=== PATIENT | female | born 1965 | race Caucasian/White ===

== ENCOUNTER 2016-09-07 11:00 | Outpatient (CLI) | payer OTHER, MEDICAID ==
[2016-09-07] MEDS ORDERED: ACETAMINOPHEN 325 MG TAB PO PRN (11:21)
[2016-09-07] MEDS ORDERED: diphenhydrAMINE 25 MG CAP PO ONE (11:30)
[2016-09-07 16:36] VITALS: BP 106/66; PULSE 72; RESP 17; TEMP 97.9; O2SAT 95
== END 2016-09-07 16:37 | disposition home or self-care (01) ==
LOC: F1NOP 11:00 → EDSTATUS 11:02 → F1NOP 16:37
PROVIDERS: ATTEND Internal Medicine Gastroenterology
DX: Z51.11 Encounter for antineoplastic chemotherapy (principal); K50.00 Crohn's disease of small intestine without complications
CPT/HCPCS: 96413; 96415; J1745

== ENCOUNTER 2016-10-30 09:27 | Outpatient (CLI) | payer OTHER, MEDICAID | END 2016-10-30 12:47 | disposition home or self-care (01) | LOC: F1NOP 09:27 | PROVIDERS: ATTEND Internal Medicine Gastroenterology | PROC: 3E033GC Introduction of Other Therapeutic Substance into Peripheral Vein, Percutaneous Approach (ICD-10-PCS; principal; 2016-10-30) | DX: K50.90 Crohn's disease, unspecified, without complications (principal) | CPT/HCPCS: 96413; 96415; J1745 ==

== ENCOUNTER 2016-10-30 09:27 | Outpatient (CLI) | payer OTHER, MEDICAID ==
[2016-09-16 12:28] LABS: % IMMATURE GRANULYOCYTES 0.3 % (0.0-1.1); ABSOLUTE IMMATURE GRANULOCYTES 0.02 10^3/uL (0.00-0.10); ADD DIFF? NO; ADD MORPH? NO; ADD SCAN? NO; ATYPICAL LYMPHOCYTE FLAG 40 (0-99); FRAGMENT RBC FLAG 20 (0-99); LEFT SHIFT FLG 0 (0-99); LIPEMIA HEMOLYSIS FLAG 80 (0-99); MEAN CELL HEMOGLOBIN 34.7 pg (27.9-34.1); MEAN CELL HEMOGLOBIN CONCENTR. 33.3 g/dL (32.4-36.7); PLATELET CLUMPS FLAG 10 (0-99); PLATELET COUNT 308 10^3/uL (150-400); RED BLOOD CELL COUNT 4.04 10^6/uL (4.18-5.33); RED CELL DISTRIBUTION WIDTH 13.7 % (11.5-15.2)
[2016-09-16 14:00] LABS: ALANINE AMINOTRANSFERASE 22 IU/L (9-52); ALBUMIN 3.5 g/dL (3.5-5.0); ALKALINE PHOSPHATASE 71 IU/L (38-126); ASPARTATE AMINOTRANSFERASE 32 IU/L (14-46); BILIRUBIN,TOTAL 1.1 mg/dL (0.1-1.4); BILIRUBIN-CONJUGATED 0.3 mg/dL (0.0-0.5); BILIRUBIN-UNCONJUGATED 0.8 mg/dL (0.0-1.1); TOTAL PROTEIN 7.3 g/dL (6.3-8.2)
[2016-09-16 15:41] LABS: COLOR AMBER; LEUKOCYTE ESTERASE,URINE NEGATIVE (NEGATIVE); NITRITE,URINE NEGATIVE (NEGATIVE)
[2016-09-18 13:59] LABS: FOLATE SERUM 10.2 ng/mL (2.80 - >20.00)
[2016-10-30] MEDS ORDERED: ACETAMINOPHEN 325 MG TAB PO PRN (09:50)
[2016-10-30] MEDS ORDERED: diphenhydrAMINE 25 MG CAP PO ONE (10:00)
[2016-10-30 10:27] VITALS: TEMP 97.9
[2016-10-30 12:39] VITALS: BP 118/78; PULSE 79; RESP 16; O2SAT 96
== END 2016-10-30 12:47 | disposition home or self-care (01) ==
LOC: F1NOP 09:27
PROVIDERS: ATTEND Internal Medicine Gastroenterology
DX: Z51.11 Encounter for antineoplastic chemotherapy (principal); K50.90 Crohn's disease, unspecified, without complications
CPT/HCPCS: 96413; 96415; J1745; 82607-90

== ENCOUNTER 2016-12-12 10:17 | Outpatient (CLI) | payer OTHER, MEDICAID ==
[2016-12-12] MEDS ORDERED: ACETAMINOPHEN 325 MG TAB PO PRN (10:28)
[2016-12-12] MEDS ORDERED: diphenhydrAMINE 25 MG CAP PO ONE (10:30)
[2016-12-12 10:34] VITALS: RESP 16
[2016-12-12 14:22] VITALS: BP 122/64; PULSE 66; TEMP 98.6; O2SAT 95
== END 2016-12-12 15:20 | disposition home or self-care (01) ==
LOC: F1NOP 10:17
PROVIDERS: ATTEND Internal Medicine Gastroenterology
DX: K50.90 Crohn's disease, unspecified, without complications (principal)
CPT/HCPCS: 96365; J1745

== ENCOUNTER → 2017-01-22 | Outpatient (CLI) | payer OTHER, MEDICAID ==
[~2017-01-22] MED LIST: INFLIXIMAB IV ONE; NS IV ONE; diphenhydrAMINE 50 MG CAP PO SCH
[2017-01-22 12:31] VITALS: RESP 16
[2017-01-22 13:21] VITALS: PULSE 76
[2017-01-22 20:31] VITALS: BP 113/68; TEMP 98.3; O2SAT 93
== END ==
LOC: F1NOP 09:58
PROVIDERS: ATTEND Internal Medicine Gastroenterology
PROC: 3E033GC Introduction of Other Therapeutic Substance into Peripheral Vein, Percutaneous Approach (ICD-10-PCS; principal; 2017-01-22)
DX: K50.90 Crohn's disease, unspecified, without complications (principal)
CPT/HCPCS: 96413; 96415; J1745

== ENCOUNTER → 2018-07-05 | Outpatient (CLI) | payer OTHER, MEDICAID | LOC: BMCIMAGING 11:12 | PROVIDERS: ATTEND Internal Medicine Rheumatology | DX: M24.811 Other specific joint derangements of right shoulder, not elsewhere classified (principal) | CPT/HCPCS: 86225-90 ==

== ENCOUNTER 2018-09-07 10:30 | Inpatient (IN) | payer OTHER, MEDICAID ==
[2018-09-07] MEDS ORDERED: ceFAZolin 2 GM/DEXTROSE 100 ML IV ONE (12:09)
[2018-09-07] MEDS ORDERED: ACETAMINOPHEN 500 MG TAB PO ONE (12:09)
[2018-09-07] MEDS ORDERED: LR 1,000 ML IV ONE (12:10)
[2018-09-07] MEDS ORDERED: LIDOCAINE 1% 2 ML INJ ID PRN (12:10)
[2018-09-07] MEDS ORDERED: SURGIFLO MATRIX KIT WITH THROMBIN 8 ML TP ONE ×2 (13:29→15:40)
[2018-09-07] MEDS ORDERED: THROMBIN (BOVINE) 5,000 UNIT VIAL TP ONE (13:30)
[2018-09-07] MEDS ORDERED: CHLORHEXIDINE GLUC HIBICLENS 118 ML BTL TP ONE (13:30)
[2018-09-07] MEDS ORDERED: BUPIVACAINE/EPI 0.25% 30 ML SDV ONE (13:30)
[2018-09-07] MEDS ORDERED: BACITRACIN 50,000 UNITS/10 ML SYR IRR ONE (13:31)
--- NOTE | 2018-09-07 13:31 | PDHPUP ---
History & Physical Update H&P update statement: This history and physical update is based on an assessment of the patient which was completed after admission or registration (within 24 hours), but prior to the surgery/procedure. H&P update: H&P reviewed & patient examined, no change in patient's condition since H&P completed
--- NOTE | 2018-09-07 13:42 | PDANEPAE ---
ANE History of Present Illness neck pain ANE Past Medical History - Cardiovascular History Hx Hypertension: No Hx Arrhythmias: No Hx Chest Pain: No Hx Coronary Artery / Peripheral Vascular Disease: No Hx CHF / Valvular Disease: No Hx Palpitations: No - Pulmonary History Hx COPD: No Hx Asthma/Reactive Airway Disease: No Hx Recent Upper Respiratory Infection: No Hx Oxygen in Use at Home: No Hx Sleep Apnea: No Sleep Apnea Screening Result - Last Documented: Negative - Neurologic History Hx Cerebrovascular Accident: No Hx Seizures: No Hx Dementia: No Neurologic History Comment: numbness and tingling to both arms currently - Endocrine History Hx Diabetes: No Hypothyroid: No Hyperthyroid: No Obesity: no - Renal History Hx Renal Disorders: No - Liver History Hx Hepatic Disorders: No - Neurological & Psychiatric Hx Hx Neurological and Psychiatric Disorders: Yes Neurological / Psychiatric History Comment: anxiety - Cancer History Hx Cancer: No - Congenital Disorder History Hx Congenital Disorders: No - GI History GERD: mild Hx Gastrointestinal Disorders: Yes Gastrointestinal History Comment: crohns disease. GERD- no symptoms currently. 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 eczema - Chronic Pain History Chronic Pain: Yes (chronic abd pain from crohns) - Surgical History Prior Surgeries: ileal/ anal anastomosis with J-pouch in 1989 ANE Review of Systems Review of systems is: negative Review of Systems: - Exercise capacity METS (RN): 4 METS ANE Patient History - Allergies Allergies/Adverse Reactions: No Known Allergies Allergy (Verified 08/17/18 10:25) - Home Medications Home medications: home medication list seen and reviewed Home Medications: Hydroxychloroquine Sulfate [Plaquenil 200 mg (*)] 200 mg PO HS 03/10/13 [Last Taken 09/06/18] azaTHIOprine [Imuran 50 mg (*)] 125 mg PO HS 03/10/13 [Last Taken 09/06/18] inFLIXimab [Remicade Inj 100 mg (*)] 100 mg IV Q42D 03/10/13 [Last Taken ] Diphenoxylate HCl/Atrop Sulf [Lomotil Tab (*)] 1 - 2 tab PO Q6HRS PRN 07/24/13 [ Last Taken 09/06/18] Amitriptyline HCl [Elavil 10 mg (*)] 20 mg PO HS 08/25/16 [Last Taken 09/06/18] Escitalopram Oxalate [Lexapro 10 MG] 10 mg PO HS 08/25/16 [Last Taken 09/06/18] predniSONE [Zina] 6 mg PO HS 08/25/16 [Last Taken 09/06/18] Acetaminophen [Tylenol ES 500 mg (*)] 500 mg PO Q6 PRN 08/16/18 [Last Taken 03/17] Latanoprost 0.005% [Xalatan 0.005% (*)] 1 drops EACHEYE HS 08/16/18 [Last Taken 09/06/18] - NPO status NPO Since - Liquids (Date): 09/06/18 NPO Since - Liquids (Time): 22:00 NPO Since - Solids (Date): 09/06/18 NPO Since - Solids (Time): 19:30 - Smoking Hx Smoking Status: Former smoker - Family Anes Hx Family Hx Anesthesia Complications: none ANE Labs/Vital Signs - Vital Signs Blood Pressure: 139/83 Heart Rate: 82 Respiratory Rate: 20 O2 Sat (%): 97 Height: 157.48 cm Weight: 68.039 kg ANE Physical Exam - Airway Neck exam: FROM Mallampati Score: Class 2 Mouth exam: normal dental/mouth exam - Pulmonary Pulmonary: no respiratory distress, clear to auscultation - Cardiovascular Cardiovascular: regular rate and rhythym, no murmur, rub, or gallop - ASA Status ASA Status: III ANE Anesthesia Plan Anesthesia Plan: general endotracheal anesthesia
[2018-09-07] MEDS ORDERED: MIDAZOLAM 2 MG/2 ML VIAL IVP ONE (13:47)
[2018-09-07] MEDS ORDERED: fentaNYL 250 MCG/5 ML INJ ONE (13:49)
[2018-09-07] MEDS ORDERED: PROPOFOL 200 MG/20 ML VIAL ONE (13:49)
[2018-09-07] MEDS ORDERED: MIDAZOLAM 2 MG/2 ML VIAL ONE (13:54)
--- NOTE | 2018-09-07 17:44 | POSTANESTH ---
Post Anesthetic Evaluation Cardiovascular Status: Normal, Stable Respiratory Status: Normal, Stable Level of Consciousness/Mental Status: Moderately Sleepy Pain Control: Adequate, Prn Tx Ordered Nausea/Vomiting Control: Adequate, Prn Tx Ordered Complications Possibly Related to Anesthesia: None Noted
[2018-09-07] MEDS ORDERED: HYDROmorphONE/DILAUDID 2 MG/ML INJ IVP PRN (17:46)
[2018-09-07] MEDS ORDERED: MEPERIDINE 25 MG/0.5 ML AMP IVP PRN (17:46)
[2018-09-07] MEDS ORDERED: PROMETHAZINE HCL 25 MG/ML INJ IVP PRN (17:46)
[2018-09-07] MEDS ORDERED: NALOXONE HCL 0.4 MG/ML INJ IVP PRN (17:46)
[2018-09-07] MEDS ORDERED: PHENYLEPHRINE HCL 100 MCG/ML SYR IVP PRN (17:46)
[2018-09-07] MEDS ORDERED: LACTULOSE 20 GM/30 ML UDCUP PO PRN (18:03)
[2018-09-07] MEDS ORDERED: POLYETHYLENE GLYCOL 3350 17 GM PKT PO PRN (18:03)
[2018-09-07] MEDS ORDERED: HYDROmorphONE/DILAUDID 1 MG/ML INJ IVP PRN (18:03)
[2018-09-07] MEDS ORDERED: diphenhydrAMINE 25 MG CAP PO PRN (18:03)
[2018-09-07] MEDS ORDERED: MAGNESIUM HYDROXIDE 30 ML UDCUP PO PRN (18:03)
[2018-09-07] MEDS ORDERED: BISACODYL 10 MG SUPP PR PRN (18:03)
--- NOTE | 2018-09-07 18:08 | POSTOPPROG ---
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 Alert Following commands,PLATA Incision with dressing c/d/i
[2018-09-07] MEDS ORDERED: fentaNYL 100 MCG/2 ML INJ ONE (18:20)
[2018-09-07] MEDS: fentaNYL 100 MCG/2 ML INJ IVP PRN ×3 (18:22→18:43)
--- NOTE | 2018-09-07 18:25 | GOP ---
DATE OF OPERATION: 09/07/2018 SURGEON: Sonia Villarreal DO NEUROSURGEON: Sonia Villarreal D.O. TIME STUDY STATISTICIAN: Sheila Wiggins PA-C. PREOPERATIVE DIAGNOSIS: Cervical spondylosis, cervical stenosis, cervical myelopathy, cervical radic ulopathy. POSTOPERATIVE DIAGNOSIS: Cervical spondylosis, cervical stenosis, cervical myelopathy, cervical radi culopathy. PROCEDURE PERFORMED: C4-5, C5-6, C6-7 anterior cervical diskectomy and fusion with [employer]onic Vivo pl ate, 48 mm plate and 6 mm interbody C4-5, anatomic PEEK cages, 7 mm at C5-6 and 8 mm at C6-7. Autogr aft, allograft, microscope, neuro monitoring. C6 partial corpectomy. FINDINGS: SPECIMENS: None. ESTIMATED BLOOD LOSS: 60 mL. INDICATIONS: This is a 53-year-old female with cervical spondylitic myelopathy and radiculopathy, wh o is on chronic prednisone for her rheumatologic diseases, but has failed conservative management, is myelopathic and elected to move forward with 3 level ACDF. We elected to do the C4-5, C5-6 and C6-7 had severe stenosis, at C4-5, there was central osteophyte with cord compression, so all 3 levels ne ed to be addressed. DESCRIPTION OF PROCEDURE: She was identified, consented. Sites were marked. Brought to the operati ng room, anesthetized under general endotracheal tube anesthesia. Pre and post positioning baselines were performed. Interscapular roll was placed. Head was placed in a Thomas horseshoe to neutral position. Shoulders were taped down. X-ray was taken to shahzad the skin incision. She was prepped an d draped in the usual sterile fashion. Incision was anesthetized with 0.5% Marcaine with epinephrine . Incision was made with a 10 blade. Hemostasis was obtained with bipolar cautery. We dissected th rough the platysma in a horizontal fashion with Metzenbaum and then using the handheld Cloward, media l and laterally palpated the carotid artery laterally, down the anterior aspect of the vertebral spin e, cleared the prevertebral fascia. Placed a bayoneted spinal needle. We were at C6-7, so we marked this with a Bovie. We then moved upward and marked C5-6 and C4-5. After this, we started at C6-7, placed [place] pins. Took an x-ray, verified we were in appropriate position, placed the patient unde r distraction, brought in the microscope. Using a high-speed drill, removed the disk and cartilagino us endplate from the superior and inferior endplates, opening the posterior longitudinal ligament wit h a micro upgoing curette, extending this with 1 Kerrison and then removed the disk and osteophyte wi th 2 Coras until we had foraminal fat visualized bilaterally and we were well decompressed. We then harvested autograft and then measured and placed an 8 mm anatomic PEEK cage, packed it with Bollinger D BM and the patient's own bone, tamped into place. Took an x-ray, verified we were in appropriate pos ition, removed the C7 [place] pin, plugged the hole with Gelfoam bullet, moved up to C5. At C6 we left the [place] pin in place. At C5 we placed a [place] pin, took an x-ray. Verified we wer e in the appropriate position. I used a high-speed drill to remove the disk and cartilaginous endpla te from the superior and inferior endplates, coming down the posterior longitudinal ligament. Opened this with a micro upgoing curette and removed the superior and inferior osteophytes. In order to ge t the inferior osteophytes well decompressed, this required a partial corpectomy after harvest of aut ograft, which we did. Once we were well decompressed, we harvested autograft. Meticulous hemostasis was obtained with Floseal. We measured a 7 mm anatomic PEEK cage, packed it with DBM and the patien t's own bone, tamped into place, verified it was in the appropriate position. Removed the [place] pin from C5, plugged the hole with a Gelfoam bullet. Removed it from C6, moved the [place] pin up to C4. Verified it was in the appropriate position. Placed the patient under distraction, performed the s ang procedure, removing the disk and cartilaginous endplate. The superior and inferior osteophytes a nd bilateral lateral foramina were explored until they were well decompressed. We then harvested elda e allograft. Measured a 6 mm anatomic PEEK cage, packed with DBM and the patient's own bone. After meticulous hemostasis had been obtained, when we verified that we had all grafts in good position and all neuro monitoring was stable. We measured a 48 mm plate, placed some bend to the plate, used the drill guide superiorly down 1 side and placed screws. Verified they were all in good position inclu ding at the C7, with tug to the shoulders we were able to see it does not appear we are violating the endplates based upon her x-rays. However the C7 was much more difficult to visualize. We then perf ormed the same thing on the other side. On the right side the C5 screw broke in bone with 1-2 threads left. This was irretrievable. We elected to leave this here. We then verified under x-ray we were in good position, locked all the locking mechanisms, copiously irrigated with over a liter of gentam icin-infused saline, trocar to drain out inferiorly, placed in the prevertebral space, inspected the severino on the way out. We had meticulous hemostasis. Closed the platysma with 3-0 Vicryl pop offs, s ubcutaneous layer of 3-0 Vicryl pop-offs. The skin was closed with 4-0 running Monocryl and Steri-St rips. Drain was sutured with 2-0 Vicryl pop-off and placed to bulb suction. The wound was dressed w ith Xeroform gauze and a Tegaderm. Patient tolerated procedure well. Neuromonitoring remained stabl e. There were no complications. FLUIDS: 800 mL crystalloid. URINE OUTPUT: None. DRAINS: One SELVIN in the prevertebral space to bulb suction. COMPLICATIONS: None. /[id number]/MODL
[2018-09-07] MEDS ORDERED: HYDROmorphONE/DILAUDID 2 MG/ML INJ ONE (19:15)
[2018-09-07] MEDS: CYCLOBENZAPRINE 10 MG TAB PO PRN (20:46)
[2018-09-07] MEDS: ACETAMINOPHEN 500 MG TAB PO SCH (22:22)
[2018-09-07] MEDS: predniSONE 5 MG TAB PO SCH (22:23)
[2018-09-07] MEDS: ESCITALOPRAM OXALATE 10 MG TAB PO SCH (22:23)
[2018-09-07] MEDS: oxyCODONE IR 5 MG TAB PO PRN (22:23)
[2018-09-07] MEDS: predniSONE 1 MG TAB PO SCH (22:24)
[2018-09-07] MEDS: AMITRIPTYLINE HCL 10 MG TAB PO SCH (22:24)
[2018-09-07] MEDS: azaTHIOprine 50 MG TAB PO SCH (22:24)
[2018-09-07] MEDS: HYDROXYCHLOROQUINE SULFATE 200 MG TAB PO SCH (22:24)
[2018-09-07] MEDS: ceFAZolin 2 GM/DEXTROSE 100 ML IV SCH (22:24)
[2018-09-07] MEDS: SENNOSIDES/DOCUSATE SODIUM TAB PO SCH (22:25)
[2018-09-07] MEDS: LATANOPROST 0.005% 2.5 ML OPHT DROPS EACHEYE SCH (22:25)
[2018-09-08] MEDS ORDERED: PROMETHAZINE HCL 25 MG/ML INJ IVP PRN (01:50)
[2018-09-08] MEDS: ONDANSETRON 4 MG/2 ML VIAL IVP PRN ×2 (01:59→06:45)
[2018-09-08] MEDS: ACETAMINOPHEN 500 MG TAB PO SCH ×3 (05:44→21:25)
[2018-09-08] MEDS: oxyCODONE IR 5 MG TAB PO PRN ×4 (05:45→17:13)
[2018-09-08] MEDS: ceFAZolin 2 GM/DEXTROSE 100 ML IV SCH (05:45)
--- NOTE | 2018-09-08 08:01 | PDMN ---
Medical Necessity Medical necessity: Pt meets INPT criteria per MD as of 09/07/18 and [facility] [place] (3-level fusion, C6 partial corpectomy; est. LOS >2 MN).
--- NOTE | 2018-09-08 08:05 | NEUSURGPN ---
Assessment/Plan: 53 yo female POD#1 s/p ACDF C4-7 - Neuro: Overall doing well but has some nausea this morning -May want to try pre-medicating with anti-nausea prior to pain medications -Continue soft foods. 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 Villarreal saw the patient this am as well and told her about screw head breaking off during surgery. There is no issue with this and will not effect healing. Patient understood. -Postop x-rays today - SELVIN drain x 1- no output recorded on EMR. 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 Will determine SELVIN drain removal once output recorded S: Doing well, no arm pain. Has pain between the shoulder blades as expected. Has a sore throat but so far swallowing well. She does have some nausea with pain medicines this morning. Exam Awake. Alert. Following commands BUE 5/5= Hard cervical collar in place BLE 5/5 Incision with dressing c/d/i SELVIN X 1 with serosang in bulb Catheter Insertion Date: 09/07/18 - Physician Discussed Patient with : Phil Patient Seen by : Phil Neurosurgery Physical Exam - Vitals, I&O, Labs I and O 09/07/18 09/08/18 09/09/18 05:59 05:59 05:59 Intake Total 1090 Output Total 900 Balance 190 Weight 68.039 kg Intake: Oral (ml) 290 IV Intake (ml) 800 Output: Urine (ml) 550 Catheter 550 Estimated Blood Loss (ml) 50 Emesis (ml) 300 Other: Intake Quantity Yes Sufficient Vital Signs Temp Pulse Resp BP Pulse Ox 36.9 C 88 16 124/69 H 98 09/08/18 03:17 09/08/18 03:17 09/08/18 03:17 09/08/18 03:17 09/08/18 03:17 ICD10 Worksheet Patient Problems: Problems Problem Status Onset Pyelonephritis Acute
[2018-09-08] MEDS: SENNOSIDES/DOCUSATE SODIUM TAB PO SCH ×2 (08:27→20:15)
--- NOTE | 2018-09-08 10:29 | ASMTCMCOM ---
CM Note CM Note Notes: Pt is a 53 y/o female admitted for a cervical stenosis. PT and SPL have both cleared pt to d/c home without any services. Pt does not have any needs at this time. CM available for changes. Plan: Independent Date Signed: 09/08/2018 10:28 AM Electronically Signed By:TONY Toledo
[2018-09-08] MEDS ORDERED: SUMAtriptan 50 MG TAB PO PRN (12:45)
[2018-09-08] MEDS ORDERED: NS 1,000 ML IV SCH (13:30)
[2018-09-08] MEDS: CYCLOBENZAPRINE 10 MG TAB PO PRN ×2 (13:40→21:25)
[2018-09-08] MEDS: azaTHIOprine 50 MG TAB PO SCH (20:11)
[2018-09-08] MEDS: predniSONE 5 MG TAB PO SCH (20:11)
[2018-09-08] MEDS: predniSONE 1 MG TAB PO SCH (20:11)
[2018-09-08] MEDS: AMITRIPTYLINE HCL 10 MG TAB PO SCH (20:13)
[2018-09-08] MEDS: HYDROXYCHLOROQUINE SULFATE 200 MG TAB PO SCH (20:13)
[2018-09-08] MEDS: ESCITALOPRAM OXALATE 10 MG TAB PO SCH (20:13)
[2018-09-08] MEDS: LATANOPROST 0.005% 2.5 ML OPHT DROPS EACHEYE SCH (20:16)
[2018-09-09] MEDS: ACETAMINOPHEN 500 MG TAB PO SCH (05:35)
--- NOTE | 2018-09-09 07:16 | NEUSURGPN ---
Date of Surgery: 09/07/18 Post Op Day: 2 Assessment/Plan: 3 yo female POD#2 s/p ACDF C4-7 - Neuro stable. - Pain controlled - Tolerating diet - Hard collar - PT/OT - Gabriel drain remove yesterday -Dr. Villarreal saw the patient yesterday and told her about screw head breaking off during surgery. There is no issue with this and will not effect healing. Patient understood. -Postop x-rays completed - Discharge home today Subjective: Doing well this morning. No UE symptoms. Tolerating a diet. Nausea improved. Objective: Awake. Alert. PERRL. EOMI Facial expression symmetrical Muscle strength full at 5/5 sensation intact incision with dressing c/d/i Catheter Insertion Date: 09/07/18 - Physician Discussed Patient with : Phil Neurosurgery Physical Exam - Vitals, I&O, Labs I and O 09/08/18 09/09/18 09/10/18 05:59 05:59 05:59 Intake Total 1090 1385 Output Total 900 700 Balance 190 685 Weight 68.039 kg Intake: Oral (ml) 290 400 IV Intake (ml) 800 IV Infused (ml) 985 Ns 1,000 ml @ 75 mls/hr 985 IV CONT RENUKA Rx#: [id number] Output: Urine (ml) 550 700 Catheter 550 Toilet 700 Estimated Blood Loss (ml) 50 Emesis (ml) 300 Other: Intake Quantity Yes Sufficient Number of Voids Toilet 2 Post Void Residual Scan Volume (ml) Toilet 70 Vital Signs Temp Pulse Resp BP Pulse Ox 36.8 C 86 16 118/75 98 09/08/18 23:39 09/08/18 23:39 09/08/18 23:39 09/08/18 23:39 09/08/18 23:39 ICD10 Worksheet Patient Problems: Problems Problem Status Onset Pyelonephritis Acute
[2018-09-09 07:40] VITALS: BP 127/80
[2018-09-09] MEDS: SENNOSIDES/DOCUSATE SODIUM TAB PO SCH (07:50)
[2018-09-10] MEDS ORDERED: ENOXAPARIN 40 MG/0.4 ML SYR SC SCH (09:00)
--- NOTE | 2018-09-14 12:37 | GDS ---
ADMITTING DIAGNOSES: Cervical stenosis with myelopathy. DISCHARGE DIAGNOSES: Cervical stenosis with myelopathy. PROCEDURE PERFORMED: Anterior cervical diskectomy and fusion at C4-5, C5-6 and C6-7. HOSPITAL COURSE: The patient is a 53-year-old female with cervical stenosis with myelopathy and pres ented for surgical intervention. She underwent an anterior cervical diskectomy and fusion at C4-5, C 5-6, and C6-[address] Sonia Villarreal on September 07, 2018. Surgery was performed without complications an d she tolerated well. She was transferred to the floor for further pain control and neurological checks. She was fitted wi th a cervical hard collar. SELVIN drain was removed once output was reduced. Postop x-rays were complet ed and demonstrates hardware in good placement. Once when she was tolerating a diet, voiding without difficulty, pain controlled, and medically stabl e, she was deemed suitable for discharge. DISPOSITION: She was discharged to home on September 09, 2018. DISCHARGE INSTRUCTIONS: 1. Patient was asked to wear her hard collar at all times except when showering. 2. She is to refrain from lifting anything more than 10 pounds. 3. She will follow up with Dr. Villarreal in 2 weeks for wound check. /[id number]/MODL
== END 2018-09-09 12:11 | disposition home or self-care (01) | DRG 473 ==
LOC: F3N 11:58
PROVIDERS: ADMIT Neurological Surgery; ATTEND Neurological Surgery
PROC: 0RG20A0 Fusion of 2 or more Cervical Vertebral Joints with Interbody Fusion Device, Anterior Approach, Anterior Column, Open Approach (ICD-10-PCS; principal; 2018-09-07 14:00)
DX: M47.12 Other spondylosis with myelopathy, cervical region (principal); M47.22 Other spondylosis with radiculopathy, cervical region; M32.9 Systemic lupus erythematosus, unspecified; Z79.52 Long term (current) use of systemic steroids
CPT/HCPCS: 92526-GN; 92610-GN; 97161-GP; 97165-GO; C1713; J0690; J1170; J2250; J2405; J2550; J2704; J3010; J7500; J7512

== ENCOUNTER 2018-09-22 17:54 | Emergency (ER) | payer OTHER, MEDICAID ==
[2018-09-22] MEDS ORDERED: DEXAMETHASONE 10 MG/ML VIAL IVP ONE (18:37)
[2018-09-22] MEDS ORDERED: NS 1,000 ML IV ONE (18:37)
[2018-09-22] MEDS ORDERED: METOCLOPRAMIDE 10 MG/2 ML VIAL IVP ONE (18:37)
--- NOTE | 2018-09-22 18:40 | EDPHY ---
H & P Stated Complaint: usual migraine c N/V, no neuro changes, can't take normal meds. Time Seen by Provider: 09/22/18 18:10 HPI/ROS: CHIEF COMPLAINT: Migraine headache HISTORY OF PRESENT ILLNESS: 53-year-old female with migraine headaches presents with a typical migraine headache. Onset of intermittent headaches 2 days ago. Since last evening, the headache has been constant. Left-sided headache, throbbing and associated with photophobia and vomiting. Unable to take NSAIDs because of recent cervical spine fusion. Typically headaches are alleviated with Imitrex and ibuprofen. REVIEW OF SYSTEMS: complete 10 point ROS reviewed and is negative except for the noted elements in the HPI Source: Patient - Personal History Current Tetanus/Diphtheria Vaccine: Unsure - Medical/Surgical History Hx Asthma: No Hx Chronic Respiratory Disease: No Hx Diabetes: No Hx Cardiac Disease: No Hx Renal Disease: No Hx Cirrhosis: No Hx Alcoholism: No Hx HIV/AIDS: No Hx Splenectomy or Spleen Trauma: No Other PMH: crohn's, illio/anal amostimosis (internal pouch), migraines, new dx of lupus - Social History Smoking Status: Former smoker Alcohol Use: Sober Drug Use: None - Physical Exam Exam: General Appearance: Alert, pleasant Eyes: Pupils equal and round, no conjunctival pallor ENT, Mouth: Mucous membranes moist Neck: In cervical spine collar Respiratory: Lungs are clear to auscultation Cardiovascular: Regular rate and rhythm Gastrointestinal: Abdomen is soft and nontender Neurological: Alert, oriented x3, cranial nerves II through XII intact, motor and sensory grossly intact Skin: Warm and dry Extremities: Normal inspection Psychiatric: Mood and affect normal Constitutional: Initial Vital Signs Temperature (C) 36.3 C 09/22/18 17:58 Heart Rate 80 09/22/18 17:58 Respiratory Rate 16 09/22/18 17:58 Blood Pressure 128/77 H 09/22/18 17:58 O2 Sat (%) 98 09/22/18 17:58 O2 Delivery Mode Room Air Allergies/Adverse Reactions: No Known Allergies Allergy (Verified 09/22/18 17:58) Home Medications: Medication Instructions Recorded Hydroxychloroquine Sulfate 200 mg PO HS 03/10/13 [Plaquenil 200 mg (*)] azaTHIOprine [Imuran 50 mg (*)] 125 mg PO HS 03/10/13 inFLIXimab [Remicade Inj 100 mg 100 mg IV Q42D 03/10/13 (*)] Diphenoxylate HCl/Atrop Sulf 1 - 2 tab PO Q6HRS PRN 07/24/13 [Lomotil Tab (*)] Amitriptyline HCl [Elavil 10 mg 20 mg PO HS 08/25/16 (*)] Escitalopram Oxalate [Lexapro 10 10 mg PO HS 08/25/16 MG] predniSONE [Zina] 6 mg PO HS 08/25/16 Acetaminophen [Tylenol ES 500 mg 500 mg PO Q6 PRN 08/16/18 (*)] Latanoprost 0.005% [Xalatan 0.005% 1 drops EACHEYE HS 08/16/18 (*)] Sumatriptan Succinate [Imitrex] 100 mg PO Q2HRS PRN 09/08/18 Cyclobenzaprine [Flexeril 10 MG 10 mg PO TID PRN #40 tab 09/09/18 (*)] oxyCODONE IR [Oxycodone Ir (*)] 5 - 10 mg PO Q4HRS PRN #60 tab 09/09/18 Medical Decision Making ED Course/Re-evaluation: This patient presents with a typical migraine headache. IV normal saline 1 L, Reglan, Benadryl and Decadron IV given. 8:30 p.m.-headache has completely resolved. Ready to go home. Differential Diagnosis: Headache including but not limited to subarachnoid hemorrhage, migraine headache , tension headache and infectious causes such as meningitis, pharyngitis and sinusitis. - Data Points Medications Given: Discontinued Medications Dexamethasone (Decadron Injection) 10 mg IVP EDNOW ONE Stop: 09/22/18 18:38 Last Admin: 09/22/18 19:42 Dose: 10 mg Diphenhydramine HCl (Benadryl Injection) 25 mg IVP EDNOW ONE Stop: 09/22/18 18:38 Last Admin: 09/22/18 19:42 Dose: 25 mg Sodium Chloride (Ns) 1,000 mls @ 0 mls/hr IV ONCE ONE; Wide Open PRN Reason: Protocol Stop: 09/22/18 18:38 Last Admin: 09/22/18 19:41 Dose: 1,000 mls Metoclopramide HCl (Reglan Injection) 10 mg IVP EDNOW ONE Stop: 09/22/18 18:38 Last Admin: 09/22/18 19:42 Dose: 10 mg Departure - Departure Disposition: Home, Routine, Self-Care Clinical Impression: Migraine headache Qualifiers: Migraine type: without aura Status migrainosus presence: with status migrainosus Intractability: not intractable Qualified Code(s): G43.001 - Migraine without aura, not intractable, with status migrainosus Condition: Good Instructions: Migraine Headache (ED) Referrals: Halima Chang MD [Primary Care Provider] - As per Instructions
[2018-09-22 20:50] VITALS: BP 133/72
== END 2018-09-22 20:49 | disposition home or self-care (01) ==
DX: G43.001 Migraine without aura, not intractable, with status migrainosus (principal); E86.9 Volume depletion, unspecified; M32.9 Systemic lupus erythematosus, unspecified
CPT/HCPCS: 96361; 96374; 96375; 99284; J1100; J1200; J2765

== ENCOUNTER → 2018-10-19 | Outpatient (CLI) | payer OTHER, MEDICAID | LOC: BMCIMAGING 13:25 | PROVIDERS: ATTEND Neurological Surgery | DX: Z09 Encounter for follow-up examination after completed treatment for conditions other than malignant neoplasm (principal); Z98.1 Arthrodesis status ==

== ENCOUNTER → 2018-11-30 | Outpatient (CLI) | payer OTHER, MEDICAID | LOC: BMCIMAGING 11:17 | PROVIDERS: ATTEND Physician Assistant Surgical | DX: Z09 Encounter for follow-up examination after completed treatment for conditions other than malignant neoplasm (principal); Z98.1 Arthrodesis status ==

== ENCOUNTER → 2019-02-03 | Outpatient (CLI) | payer OTHER, MEDICAID | LOC: FIMAGING 08:22 ==